=== PATIENT | female | born 1950 | race Caucasian/White ===

== ENCOUNTER 2020-06-26 11:24 | Emergency (ER) | payer OTHER, MEDICARE, SELFPAY ==
--- NOTE | ~2020-06-26 | CT_ITS ---
EXAMINATION: CT brain wo con DATE: 06/26/2020 12:44 INDICATION: Fall with head injury TECHNIQUE: Computed tomography (CT) of the head was performed without intravenous contrast. Sagittal and coronal reconstructions were performed. The mA was adjusted according to patient size. Iterative reconstruction technique was employed. The dose-length product was 605.33 mGy-cm. COMPARISON: None FINDINGS: Scalp hematoma extending over the nuchal ridge. No fracture. No acute intracranial hemorrhage, acute infarction or abnormal extra axial fluid collection. There is mild scattered white matter hypoattenua tion consistent with chronic small vessel ischemic disease. Ventricles are normal and symmetric. No m ass/mass effect. The orbits, paranasal sinuses and mastoid air cells are normal. IMPRESSION: 1. No fracture or acute intracranial process. 2. Mild scattered white matter hypoattenuation consistent with chronic small vessel ischemic disease. Reviewed, dictated and finalized at location A. IMPRESSION: 1. No fracture or acute intracranial process. 2. Mild scattered white matter hypoattenuation consistent with chronic small ve ssel ischemic disease.
[2020-06-26 11:28] VITALS: BP 150/100; PULSE 94; RESP 18; TEMP 36.6; O2SAT 98
--- NOTE | 2020-06-26 13:23 | ED.GENADULT ---
HPI - General Adult General Chief complaint: Head Injury Stated complaint: HI Time Seen by Provider: 06/26/20 12:10 Source: patient Mode of arrival: ambulatory Limitations: no limitations History of Present Illness HPI narrative: 69-year-old with a history of hypertension here with complaints of fall. Patient states that she was at work, thought she was sitting on the chair but there was no chair and fell backwards. She denies loss of consciousness. No history of nausea or vomiting. Complains of pain and swelling to the back of the head. Onset (ago): hour(s) (1) Location: head Radiation: non-radiation Severity: moderate Quality: aching Exacerbating factors: none Associated symptoms: denies other symptoms Related Data Allergies Allergy/AdvReac Type Severity Reaction Status Date / Time No Known Allergies Allergy Unknown Unverified 10/10/07 08:01 Review of Systems Review of Systems: All systems reviewed & are unremarkable except as noted in HPI and below Constitutional: Constitutional: Reports no additional constitutional complaints Eyes: Eyes: Reports no additional eye complaints ENT: Reports as per HPI Cardiovascular: Cardiovascular: Reports no additional cardiovascular complaints Gastrointestinal: Gastrointestinal: Reports no additional gastrointestinal complaints Musculoskeletal: Musculoskeletal: Reports no additional musculoskeletal complaints [facility] Family History Family History (Updated 05/16/18 @ 07:59 by DOCTOR UNKNOWN) Sibling Cerebrovascular accident Other Family history of cardiovascular disease Hypertension Social History Social History Smoking status: Never smoker Alcohol intake: current Gender identity (if verbalized by the patient): Female Exam Const: General: no acute distress and alert Orientation/consciousness: patient oriented x3 HENMT: Head: normal to inspection and hematoma right occipital 3 m Eyes: Conjunctivae: conjunctivae normal Pupils: Equal, round and reactive pupils present Neck: Neck: normal visual inspection Chest: Chest palpation & inspection: normal inspection of the chest Skin: General skin exam: normal color Neuro: General: patient oriented x3 and moves all extremities Extrem: General: normal to inspection Course Vital Signs Vital signs: Vital Signs Temperature 36.6 C 06/26/20 11:28 Pulse Rate 94 06/26/20 11:28 Respiratory Rate 18 06/26/20 11:28 Blood Pressure 150/100 H 06/26/20 11:28 Pulse Oximetry 98 06/26/20 11:28 Temperature 36.6 C 06/26/20 11:28 Pulse Rate 94 06/26/20 11:28 Respiratory Rate 18 06/26/20 11:28 Blood Pressure 150/100 H 06/26/20 11:28 Pulse Oximetry 98 06/26/20 11:28 Medical Decision Making Vital Signs Vital Signs: Vital Signs Temperature 36.6 C 06/26/20 11:28 Pulse Rate 94 06/26/20 11:28 Respiratory Rate 18 06/26/20 11:28 Blood Pressure 150/100 H 06/26/20 11:28 Pulse Oximetry 98 06/26/20 11:28 Temperature 36.6 C 06/26/20 11:28 Pulse Rate 94 06/26/20 11:28 Respiratory Rate 18 06/26/20 11:28 Blood Pressure 150/100 H 06/26/20 11:28 Pulse Oximetry 98 06/26/20 11:28 Imaging Data Radiologist's impression: ITS Impressions Head CT 06/26/20 12:46 IMPRESSION: 1. No fracture or acute intracranial process. 2. Mild scattered white matter hypoattenuation consistent with chronic small vessel ischemic disease. Discharge Plan Discharge Clinical Impression: Closed head injury Patient Disposition: Home, Self-Care Condition: Stable Instructions: Antibiotic Form, Head Injury (ED) Additional Instructions: Take tylenol for pain as needed Follow-up/Referrals: Veronica Alfaro MD [Primary Care Provider] - Time of Disposition: 13:30
== END 2020-06-26 13:58 | disposition home or self-care (01) ==
PROVIDERS: Emergency Provider Family Medicine; PCP Internal Medicine
DX: S09.90XA Unspecified injury of head, initial encounter (principal); I10 Essential (primary) hypertension; W07.XXXA Fall from chair, initial encounter
CPT/HCPCS: 70450; 99284

== ENCOUNTER → 2020-09-16 17:21 | Outpatient (CLI) | payer MEDICARE, SELFPAY ==
--- NOTE | ~2020-09-16 | DEXA_ITS ---
Bone Density Report Name: Elsie Mccoy Age: 69 Sex: Female Ethnicity: White Date of : 1950 Indication: osteopenia; hysterectomy; rheumatoid arthritis; postmenopausal Referring Provider: Veronica Alfaro Study: Bone densitometry was performed. Exam Date: September 16, 2020 Accession number: [id number] Bone Density: Region BMD T-score Z-score Classification AP Spine (L1-L4) 0.857 -1.7 0.3 Osteopenia Femoral Neck (Left) 0.869 0.2 1.9 Normal Total Hip (Left) 1.079 1.1 2.6 Normal Femoral Neck (Right) 0.903 0.5 2.2 Normal Total Hip (Right) 1.111 1.4 2.8 Normal Total Hip Mean 1.095 1.3 2.7 Normal World Health Organization criteria for BMD impression classify patients as: Normal (T-score at or above -1.0), Osteopenia (T-score between -1.0 and -2.5), or Osteoporosis (T-score at or below -2.5). 10-year Fracture Risk(1): Major Osteoporotic Fracture 8.8% Hip Fracture 0.4% Reported Risk Factors: [place] (), Neck BMD=0.869, BMI=28.1, rheumatoid arthritis (1) FRAX(R) Version 3.08. Fracture probability calculated for an untreated patient. Fracture probability may be lower if the patient has received treatment. Previous Exams: Region Exam Age BMD T-score BMD Change BMD Change Date g/cm2 vs Baseline vs Previous AP Spine(L1-L4) 09/16/2020 69 0.857 -1.7 -0.032* -0.037* 06/26/2018 67 0.894 -1.4 0.005 -0.038* 08/31/2012 61 0.932 -1.0 0.043* 0.023* 06/28/2010 59 0.909 -1.3 0.020 0.025* 06/06/2007 56 0.884 -1.5 -0.006 -0.006 05/23/2006 55 0.889 -1.4 Total Hip(Left) 09/16/2020 69 1.079 1.1 0.008 -0.006 06/26/2018 67 1.085 1.2 0.014 0.011 08/31/2012 61 1.074 1.1 0.003 0.026 06/28/2010 59 1.048 0.9 -0.023 0.044* 06/06/2007 56 1.004 0.5 -0.067* -0.067* 05/23/2006 55 1.071 1.1 Total Hip(Right) 09/16/2020 69 1.111 1.4 0.063* 0.029* 06/26/2018 67 1.082 1.1 0.033* -0.005 08/31/2012 61 1.088 1.2 0.039* 0.062* 06/28/2010 59 1.025 0.7 -0.023 0.030* 06/06/2007 56 0.996 0.4 -0.053* -0.053* 05/23/2006 55 1.049 0.9 *Denotes significance at 95% confidence level, LSC for AP Spine = 0.022 g/cm2, LSC for Total Hip = 0.027 g/cm2 Clinical Information Provided by Patient:
--- NOTE | ~2020-09-16 | MM_ITS ---
EXAMINATION: MM screening [facility] BI w jarad HISTORY: Screening mammogram TECHNIQUE: Craniocaudal and mediolateral oblique 3-D tomosynthesis images were obtained and synthetic 2-D images were generated. CAD analysis was submitted and interpreted. COMPARISON: 06/19/2019, 06/07/2018, 05/26/2017 BREAST PARENCHYMAL COMPOSITION: There are scattered areas of fibroglandular density. FINDINGS: There is no evidence of suspicious mass, calcification, or architectural distortion to sugg est malignancy in either breast. There has been no suspicious interval change. IMPRESSION: 1. No mammographic evidence of malignancy. 2. Recommend routine screening mammography in one year. BI-RADS Category 1: Negative Reviewed, dictated and finalized at location A. NING FACILITATOR
== END ==
PROVIDERS: PCP Internal Medicine; Visit Provider Internal Medicine
DX: Z12.31 Encounter for screening mammogram for malignant neoplasm of breast (principal); M81.0 Age-related osteoporosis without current pathological fracture; M85.88 Other specified disorders of bone density and structure, other site
CPT/HCPCS: 77063; 77067; 77080

== ENCOUNTER → 2021-10-27 14:18 | Outpatient (CLI) | payer MEDICARE, SELFPAY ==
--- NOTE | ~2021-10-27 | MM_ITS ---
EXAMINATION: MM screening [facility] BI w jarad HISTORY: Screening mammogram TECHNIQUE: Craniocaudal and mediolateral oblique 3-D tomosynthesis images were obtained and synthetic 2-D images were generated. CAD analysis was submitted and interpreted. COMPARISON: 09/16/2020, 06/19/2019, 06/07/2018 BREAST PARENCHYMAL COMPOSITION: There are scattered areas of fibroglandular density. FINDINGS: Scattered benign-appearing calcifications are present. There is no evidence of suspicious m ass, calcification, or architectural distortion to suggest malignancy in either breast. There has bee n no suspicious interval change. IMPRESSION: 1. No mammographic evidence of malignancy. 2. Recommend routine screening mammography in one year. BI-RADS Category 2: Benign finding(s). Reviewed, dictated and finalized at location A. T DOUGH MIXER
== END ==
PROVIDERS: PCP Internal Medicine; Visit Provider Internal Medicine
DX: Z12.31 Encounter for screening mammogram for malignant neoplasm of breast (principal)
CPT/HCPCS: 77063; 77067

== ENCOUNTER → 2022-11-04 14:01 | Outpatient (CLI) | payer OTHER, SELFPAY ==
--- NOTE | ~2022-11-04 | MM_ITS ---
EXAMINATION: MM screening [facility] BI w jarad HISTORY: Screening mammogram TECHNIQUE: Craniocaudal and mediolateral oblique 3-D tomosynthesis images were obtained and synthetic 2-D images were generated. CAD analysis was submitted and interpreted. COMPARISON: October 27, 2021, September 16, 2020, June 19, 2019 bilateral screening mammogram examin ations BREAST PARENCHYMAL COMPOSITION: There are scattered areas of fibroglandular density. FINDINGS: There is no evidence of suspicious mass, calcification, or architectural distortion to sugg est malignancy in either breast. There has been no suspicious interval change. IMPRESSION: 1. No mammographic evidence of malignancy. 2. Recommend routine screening mammography in one year. BI-RADS Category 1: Negative Reviewed, dictated and finalized at location A. WARE ENGINEER
--- NOTE | ~2022-11-04 | DEXA_ITS ---
Bone Density Report Name: VALERIY ESCAMILLA Age: 71 Sex: Female Ethnicity: White Date of : 1950 Indication: osteopenia; height loss; hysterectomy; rheumatoid arthritis; Referring Provider: Veronica Alfaro Study: Bone densitometry was performed. Exam Date: November 04, 2022 Accession number: [id number] Bone Density: Region BMD T-score Z-score Classification AP Spine (L1-L4) 0.894 -1.4 0.8 Osteopenia Femoral Neck (Left) 0.882 0.3 2.1 Normal Total Hip (Left) 1.010 0.6 2.1 Normal Femoral Neck (Right) 0.912 0.6 2.4 Normal Total Hip (Right) 1.011 0.6 2.1 Normal Total Hip Mean 1.011 0.6 2.1 Normal World Health Organization criteria for BMD impression classify patients as: Normal (T-score at or above -1.0), Osteopenia (T-score between -1.0 and -2.5), or Osteoporosis (T-score at or below -2.5). 10-year Fracture Risk(1): Major Osteoporotic Fracture 8.6% Hip Fracture 0.4% Reported Risk Factors: [place] (), Neck BMD=0.882, BMI=29.6, rheumatoid arthritis (1) FRAX(R) Version 3.08. Fracture probability calculated for an untreated patient. Fracture probability may be lower if the patient has received treatment. Previous Exams: Region Exam Age BMD T-score BMD Change BMD Change Date g/cm2 vs Baseline vs Previous AP Spine(L1-L4) 11/04/2022 71 0.894 -1.4 0.005 0.037* 09/16/2020 69 0.857 -1.7 -0.032* -0.037* 06/26/2018 67 0.894 -1.4 0.005 -0.038* 08/31/2012 61 0.932 -1.0 0.043* 0.023* 06/28/2010 59 0.909 -1.3 0.020 0.025* 06/06/2007 56 0.884 -1.5 -0.006 -0.006 05/23/2006 55 0.889 -1.4 Total Hip(Left) 11/04/2022 71 1.010 0.6 -0.061* -0.069* 09/16/2020 69 1.079 1.1 0.008 -0.006 06/26/2018 67 1.085 1.2 0.014 0.011 08/31/2012 61 1.074 1.1 0.003 0.026 06/28/2010 59 1.048 0.9 -0.023 0.044* 06/06/2007 56 1.004 0.5 -0.067* -0.067* 05/23/2006 55 1.071 1.1 Total Hip(Right) 11/04/2022 71 1.011 0.6 -0.038* -0.100* 09/16/2020 69 1.111 1.4 0.063* 0.029* 06/26/2018 67 1.082 1.1 0.033* -0.005 08/31/2012 61 1.088 1.2 0.039* 0.062* 06/28/2010 59 1.025 0.7 -0.023 0.030* 06/06/2007 56 0.996 0.4 -0.053* -0.053* 05/23/2006 55 1.049 0.9 *D
== END ==
PROVIDERS: PCP Internal Medicine; Visit Provider Internal Medicine
DX: Z12.31 Encounter for screening mammogram for malignant neoplasm of breast (principal); M85.88 Other specified disorders of bone density and structure, other site
CPT/HCPCS: 77063; 77067; 77080

== ENCOUNTER → 2023-11-08 14:11 | Outpatient (CLI) | payer OTHER, SELFPAY ==
--- NOTE | ~2023-11-08 | MM_ITS ---
EXAMINATION: MM screening [facility] BI w jarad HISTORY: Screening TECHNIQUE: Craniocaudal and mediolateral oblique 3-D tomosynthesis images were obtained and synthetic 2-D images were generated. CAD analysis was submitted and interpreted. COMPARISON: Comparison to multiple prior studies sequentially, with oldest reviewed study dated 04/2017. BREAST PARENCHYMAL COMPOSITION: There are scattered areas of fibroglandular density. FINDINGS: There is no evidence of suspicious mass, calcification, or architectural distortion to sugg est malignancy in either breast. There has been no suspicious interval change. IMPRESSION: 1. No mammographic evidence of malignancy. 2. Recommend routine screening mammography in one year. BI-RADS Category 1: Negative Reviewed, dictated and finalized at location A. BIT CARPENTER
== END ==
PROVIDERS: PCP Internal Medicine; Visit Provider Internal Medicine
DX: Z12.31 Encounter for screening mammogram for malignant neoplasm of breast (principal)
CPT/HCPCS: 77063; 77067

== ENCOUNTER 2024-01-01 12:55 | Outpatient (CLI) | payer MEDICARE, SELFPAY ==
--- NOTE | ~2024-01-01 | MR_ITS ---
MRI of the lumbar spine Clinical History: Back pain Technique: Axial T2-weighted images, and sagittal T1-weighted, T2-weighted, and T2 fat-sat images wer e acquired. Findings: No fracture identified. There is 7 mm anterolisthesis of L5 over S1. No suspicious bone mar row signal abnormality seen. At L1-L2, L2-L3, L3-L4, there is no disc bulge or herniation. There are moderate facet joint degenera tive changes at these levels. No spinal canal stenosis or neural foraminal narrowing at these levels. At L4-L5, there is minimal disc bulge, with moderate to advanced facet arthropathy. No central canal stenosis. Neural foramina are preserved. At L5-S1, there is disc bulge/uncovering with severe facet arthropathy. No central canal stenosis. Th ere is moderate right neural foraminal narrowing, and mild left neural foraminal narrowing. Paravertebral soft tissues are unremarkable. Impression: 7 mm anterolisthesis of L5 over S1. Mild degenerative changes otherwise, as detailed above. Reviewed, dictated and finalized at location . Impression: 7 mm anterolisthesis of L5 over S1. Mild degenerative changes otherwise, as detailed above.
== END 2024-01-01 12:56 ==
LOC: MICIMG 12:56
PROVIDERS: PCP Internal Medicine; Visit Provider Internal Medicine
DX: M54.50 Low back pain, unspecified (principal)
CPT/HCPCS: 72148

== ENCOUNTER 2024-01-23 13:19 | Outpatient (CLI) | payer MEDICARE, SELFPAY ==
--- NOTE | 2024-01-23 14:45 | NEURO_ITS ---
Impression: # Complains of numbness of lower extremities. Not diabetic. # Normal Nerve Conduction Study. # Normal needle/EMG exam. # Clinical correlation recommended; Could be related to small fiber neuropathy. Nerve Conduction Studies Anti Sensory Summary Table Stim Site NR Peak (ms) P-T Amp (?V) Site1 Site2 Delta-P (ms) Dist (cm) Homer (m/s) Left Sup Fibular Anti Sensory (Ant Lat Mall) 14 cm 3.8 4.5 14 cm Ant Lat Mall 3.8 16.0 42 Right Sup Fibular Anti Sensory (Ant Lat Mall) 14 cm 3.5 4.0 14 cm Ant Lat Mall 3.5 16.0 46 Left Sural Anti Sensory (Lat Mall) Calf 3.3 16.8 Calf Lat Mall 3.3 16.0 48 Right Sural Anti Sensory (Lat Mall) Calf 3.8 15.3 Calf Lat Mall 3.8 16.0 42 Motor Summary Table Stim Site NR Onset (ms) O-P Amp (mV) Site1 Site2 Delta-0 (ms) Dist (cm) Homer (m/s) Left Peroneal Motor (Vastus Med) Ankle 3.4 2.1 Popit Ankle 8.3 38.0 46 Popit 11.7 1.4 Right Peroneal Motor (Vastus Med) Ankle 3.5 1.8 Popit Ankle 8.1 39.0 48 Popit 11.6 1.5 Left Tibial Motor (Abd Rasmussen Brev) Ankle 4.0 5.7 Knee Ankle 8.6 39.0 45 Knee 12.6 3.0 Right Tibial Motor (Abd Rasmussen Brev) Ankle 3.9 3.4 Knee Ankle 9.1 39.0 43 Knee 13.0 3.1 F Wave Studies NR F-Lat (ms) L-R F-Lat (ms) Left Peroneal (Mrkrs) (EDB) 48.65 0.70 Right Peroneal (Mrkrs) (EDB) 49.36 0.70 Left Tibial (Mrkrs) (Abd Hallucis) 49.57 0.74 Right Tibial (Mrkrs) (Abd Hallucis) 50.31 0.74 EMG Side Muscle Nerve Root Ins Act Fibs Amp Dur Recrt Comment Right AntTibialis Dp Br Fibular L4-5 Nml Nml Nml Nml Nml Right Gastroc Tibial S1-2 Nml Nml Nml Nml Nml Right Fibularis Long Sup Br Fibular L5-S1 Nml Nml Nml Nml Nml Right Flex Dig Long Tibial L5-S2 Nml Nml Nml Nml Nml Right Ext Dig Brev Dp Br Fibular L5, S1 Nml Nml Nml Nml Nml Left AntTibialis Dp Br Fibular L4-5 Nml Nml Nml Nml Nml Left Gastroc Tibial S1-2 Nml Nml Nml Nml Nml Left Fibularis Long Sup Br Fibular L5-S1 Nml Nml Nml Nml Nml Left Flex Dig Long Tibial L5-S2 Nml Nml Nml Nml Nml Left Ext Dig Brev Dp Br Fibular L5, S1 Nml Nml Nml Nml Nml MTDD
== END 2024-01-23 13:20 | disposition home or self-care (01) ==
LOC: ANHNEURO 13:20
PROVIDERS: PCP Internal Medicine; Visit Provider Internal Medicine
DX: G60.8 Other hereditary and idiopathic neuropathies (principal)
CPT/HCPCS: 95886; 95910

== ENCOUNTER 2024-11-06 12:53 | Outpatient (CLI) | payer MEDICARE, SELFPAY ==
--- NOTE | ~2024-11-06 | US_ITS ---
EXAMINATION: US soft tissue chest DATE: 11/06/2024 13:22 INDICATION: Soft tissue swelling, left lateral chest. TECHNIQUE: Multiple grayscale ultrasound images of the chest were obtained. COMPARISON: None FINDINGS: There is no abnormal mass in left chest in the patient's area of concern. IMPRESSION: 1. No abnormal mass in left chest in the patient's area of concern. Reviewed, dictated and finalized at location A. EXTINGUISHER REPAIRER INSPECTOR
== END 2024-11-06 12:54 | disposition home or self-care (01) ==
LOC: MICIMG 12:54
PROVIDERS: PCP Internal Medicine; Visit Provider Nurse Practitioner Family
DX: R22.9 Localized swelling, mass and lump, unspecified (principal)
CPT/HCPCS: 76604

== ENCOUNTER 2024-11-11 14:49 | Outpatient (CLI) | payer MEDICARE, SELFPAY ==
--- NOTE | ~2024-11-11 | MM_ITS ---
EXAMINATION: MM screening [facility] BI w jarad HISTORY: Screening mammogram TECHNIQUE: Craniocaudal and mediolateral oblique 3-D tomosynthesis images were obtained and synthetic 2-D images were generated. CAD analysis was submitted and interpreted. COMPARISON: 11/08/2023, 11/04/2022, 10/27/2021 BREAST PARENCHYMAL COMPOSITION:Not Dense. The breasts are almost entirely fatty FINDINGS: No suspicious mass, calcification, or architectural distortion are identified in either alex ast to suggest malignancy. There has been no suspicious interval change. IMPRESSION: No mammographic evidence of malignancy. Recommend routine screening mammography in one year. BI-RADS Category 1: Negative Reviewed, dictated and finalized at location . ETING PROJECT MANAGER
== END 2024-11-11 14:50 | disposition home or self-care (01) ==
LOC: MICIMG 14:50
PROVIDERS: PCP Internal Medicine; Visit Provider Internal Medicine
DX: Z12.31 Encounter for screening mammogram for malignant neoplasm of breast (principal)
CPT/HCPCS: 77063; 77067

== ENCOUNTER 2025-04-22 14:26 | Outpatient (CLI) | payer MEDICARE, SELFPAY ==
--- NOTE | ~2025-04-22 | DEXA_ITS ---
Bone Density Report Name: VALERIY ESCAMILLA Age: 74 Sex: Female Ethnicity: White Date of : 1950 Indication: osteopenia; hysterectomy; Referring Provider: Veronica Alfaro Study: Bone densitometry was performed. Exam Date: April 22, 2025 Accession number: [id number] Bone Density: Region BMD T-score Z-score Classification AP Spine(L1-L4) 0.847 -1.8 0.5 Osteopenia Femoral Neck (Left) 0.878 0.3 2.2 Normal Total Hip (Left) 1.008 0.5 2.2 Normal Femoral Neck (Right) 0.886 0.3 2.3 Normal Total Hip (Right) 1.005 0.5 2.2 Normal Total Hip Mean 1.007 0.5 2.2 Normal World Health Organization criteria for BMD impression classify patients as: Normal (T-score at or above -1.0), Osteopenia (T-score between -1.0 and -2.5), or Osteoporosis (T-score at or below -2.5). 10-year Fracture Risk(1): Major Osteoporotic Fracture 7.0% Hip Fracture 0.4% Reported Risk Factors: [place] (), Neck BMD=0.878, BMI=29.2 (1) FRAX(R) Version 3.08. Fracture probability calculated for an untreated patient. Fracture probability may be lower if the patient has received treatment. Previous Exams: -- Region Exam Age BMD T-score BMD Change BMD Change Date g/cm2 vs Baseline vs Previous -- AP Spine (L1-L4) 04/22/2025 74 0.847 -1.8 -4.7%* -5.3%* 11/04/2022 71 0.894 -1.4 0.6% 4.3%* 09/16/2020 69 0.857 -1.7 -3.6%* -4.1%* 06/26/2018 67 0.894 -1.4 0.6% -4.0%* 08/31/2012 61 0.932 -1.0 4.8%* 2.6%* 06/28/2010 59 0.909 -1.3 2.2% 2.9%* 06/06/2007 56 0.884 -1.5 -0.6% -0.6% 05/23/2006 55 0.889 -1.4 Total Hip(Left) 04/22/2025 74 1.008 0.5 -5.9%* -0.2% 11/04/2022 71 1.010 0.6 -5.7%* -6.4%* 09/16/2020 69 1.079 1.1 0.8% -0.5% 06/26/2018 67 1.085 1.2 1.3% 1.0% 08/31/2012 61 1.074 1.1 0.3% 2.5% 06/28/2010 59 1.048 0.9 -2.1% 4.4%* 06/06/2007 56 1.004 0.5 -6.3%* -6.3%* 05/23/2006 55 1.071 1.1 Total Hip(Right) 04/22/2025 74 1.005 0.5 -4.2%* -0.6% 11/04/2022 71 1.011 0.6 -3.6%* -9.0%* 09/16/2020 69 1.111 1.4 6.0%* 2.7%* 06/26/2018 67 1.082 1.1 3.2%* -0.5% 08/31/2012 61 1.088 1.2 3.7%* 6.1%* 06/28/2010 59 1.025 0.7 -2.2% 3.0%* 06/06/2007 56 0.996 0.4 -5.0%* -5.0%* 05/23/2006 55 1.049 0.9 -- *Denotes significance at 95% confidence level, LSC for AP Spine = 0.022 g/cm2, LSC for Total Hip = 0.027 g/cm2 Clinical Information Provided by Patient: Has used the following medications: HRT (i.e. estrogen/hormone therapy), Vitamin D Has the following medical conditions: Hysterectomy Patient maximum height was 63 Menopause Age: 45 No regular weight bearing exercise Does not regularly consume dairy products Drinks caffeinated beverages Onset of menses at age 13 Number of children 2 Impression: The patient has low bone mass, based on the Total Spine T-score. The patient has an estimated ten-year risk of hip fracture of 0.4% and an estimated ten-year risk of major fracture of 7%, based on the WHO FRAX algorithm. The BMD for the AP Spine (L1-L4) decreased, changing by -5.3% since the last DXA exam. Discussion: BONE DENSITY IS LOW AT ONE OR MORE SKELETAL SITES. This patient's lowest T-score is low at one or more skeletal sites. It meets the World Health Organization's (WHO) criteria for ?low bone mass? (T-score between -1.0 and -2.5). The patient's 10-year risk of fracture as calculated by FRAX is less than the threshold where pharmacological therapy is recommended by the National Osteoporosis Foundation (NOF). However, all treatment decisions require clinical judgment and consideration of individual patient factors, including patient preferences, comorbidities, previous drug use, risk factors not captured in the FRAX model (e.g., frailty, falls, vitamin D deficiency, increased bone turnover, interval significant decline in bone density) and possible under or overestimation of fracture risk by FRAX. The patient should follow a healthful lifestyle (good nutrition with adequate calcium and vitamin D, and appropriate weight-bearing exercise). Follow-Up: Consider repeating this study in 2 years to reassess this patient's status, or sooner if there is some new clinical indication. Reported by: ALVAREZ on 04/22/2025 2:48:00 PM. Reviewed, dictated and finalized at location A.
== END 2025-04-22 14:27 | disposition home or self-care (01) ==
LOC: MICIMG 14:27
PROVIDERS: PCP Internal Medicine; Visit Provider Internal Medicine
DX: M81.0 Age-related osteoporosis without current pathological fracture (principal); M85.88 Other specified disorders of bone density and structure, other site
CPT/HCPCS: 77080